=== PATIENT | female | born 1950 | race African-American/Black ===

== ENCOUNTER 2016-11-06 16:42 | Inpatient (IN) | payer MEDICARE, OTHER ==
[~2016-11-06] VITALS: Ht 160 cm; Wt 65.3 kg
[2016-11-06] MEDS ORDERED: TOPROL XL25 MG (17:17)
[2016-11-06] MEDS ORDERED: XARELTO15 MG PO (17:19)
[2016-11-06] MEDS ORDERED: CELEXA10 MG PO (17:21)
[2016-11-06] MEDS ORDERED: XARELTO20 MG PO (17:21)
[2016-11-06] MEDS ORDERED: FEXOFENADINE H180 MG PO (17:21)
[2016-11-06] MEDS ORDERED: PRINIVIL20 MG (17:23)
[2016-11-06] MEDS ORDERED: MELATONIN 3 MG1 TAB (17:24)
[2016-11-06] MEDS ORDERED: PROTONIX40 MG PO (17:24)
[2016-11-06] MEDS ORDERED: NITROSTAT0.6 MG SL (17:24)
[2016-11-06] MEDS ORDERED: ZOCOR20 MG PO (17:25)
--- NOTE | 2016-11-06 18:00 | NUR ---
RECIEVED BY PRIVATE CAR TO ROOM 1109.ORIENTED TO SURROUNDINGS;ACCOMPANIED BY FAMILY.
[2016-11-06 18:21] VITALS: BP 120/62; BMI 25.6
--- NOTE | 2016-11-06 18:55 | NUR ---
RESTING QUIETLY IN BED, EYES CLOSED. BED ALARM ARMED. SR UP X3. WATER AND CALL LIGHT IN REACH.
[2016-11-06 20:09] VITALS: BP 120/62
--- NOTE | 2016-11-06 20:25 | NUR ---
CAUGHT PATIENT WITH LEGS OVER BEDSIDE, ATTEMPTING OOB. ASSISTED HER TO BR TO URINATE. INITIALLY SAID SHE WAS LOOKING FOR HER DAUGHTER WHO HAD DEPARTED EARLIER SAYING HE WILL BE STAYING THE NIGHT WITH MRS. ANDREA. ATTEMPTED TO REORIENT PATIENT TO TIME, SITUATION AND PLACE BUT PATIENT DID NOT RETAIN INFO.
[2016-11-06] MEDS ORDERED: HYDROCODON-ACE1 EAC7 PO (21:28)
--- NOTE | 2016-11-06 21:55 | NUR ---
GAVE PATIENT NORCO 5/325 X1 TAB PO FOR ABDOMINAL INCISION PAIN OF 8/10
--- NOTE | 2016-11-06 22:20 | NUR ---
RESTING QUIETLY IN BED, EYES CLOSED.
--- NOTE | 2016-11-07 00:15 | NUR ---
IN BED, EYES CLOSED. NO APPARENT DISTRESS.
--- NOTE | 2016-11-07 02:20 | NUR ---
REMAINS IN BED, EYES CLOSED. NO DISTRESS EVIDENT.
--- NOTE | 2016-11-07 04:20 | NUR ---
PATIENT IN BED, AWAKE. DENIES NEEDS TO TOILET AT THIS TIME. EXPRESSES CONCERN THAT SOMEONE MIGHT LOOK IN HER WINDOW. DEMONSTRATED THAT HER BLINDS ARE CLOSED AND THAT THE AREA OUTSIDE THE WINDOW IS AN ATRIUM THAT IS NO LONGER IN USE. SHOWED HER THAT THE LIGHT SHE IS SENSING THROUGHT THE SLATS IN THE BLINDS IS COMING FROM THE HALLWAY ABOUT 30 FEET DIAGONALLY ACROSS THE ATRIUM. THIS SEEMED TO SATISFY HER.
[2016-11-07 05:58] LABS: BASOPHILS 0.2 % (0-2); EOSINOPHILS 3.6 % (0-7); HEMATOCRIT 34.1 % (36.0-48.0); HEMOGLOBIN 10.6 g/dL (12-16); IMMATURE GRANULOCYTES 0.2 % (0-5); LYMPHOCYTES 23.5 % (15-50); MCH 26.5 pg (26.0-34.0); MCHC 31.1 g/dL (31.0-37.0); MCV 85.3 fL (80.0-100.0); MEAN PLATELET VOLUME 10.9 fL (7.4-10.4); MONOCYTES 6.6 % (2-11); NEUTROPHILS 65.9 % (40-80); PLATELET COUNT 250 10x3/uL (130-400); RDW 13.2 % (11.5-14.5); WBC 5.6 10x3/uL (4.8-10.8)
[2016-11-07 06:03] LABS: CALC OSMOLALITY 278 mosm/kg (275-300); CALCIUM 8.8 mg/dL (8.5-10.1); CARBON DIOXIDE 34.6 mmol/L (21.0-32.0); CHLORIDE - SERUM 103 mmol/L (98-107); CREATININE - SERUM 0.6 mg/dL (0.6-1.3); GLUCOSE 111 mg/dL (74-106); POTASSIUM - SERUM 3.6 mmol/L (3.5-5.1); SODIUM 140 mmol/L (136-145); UREA NITROGEN 9 mg/dL (7-18); eGFR NON AFRICAN AMERICAN > 90 mL/min (90-120)
--- NOTE | 2016-11-07 06:15 | NUR ---
ASSISTED PATIENT UP TO BR TO URINATE AFTER GIVING HER SCHEDULED PROTONIX 40MG PO.
--- NOTE | 2016-11-07 07:55 | NUR ---
SITTING UP IN BED EATING BREAKFAST.CL IN REACH
[2016-11-07 09:25] VITALS: BP 118/64
--- NOTE | 2016-11-07 09:44 | NUR ---
PT IS RECIEVING A OT SHOWER AT THIS TIME.
--- NOTE | 2016-11-07 12:01 | NUR ---
PT IS RESTING IN HER ROOM AFTER THERAPY. AWAITING LUNCH. NO COMPLAINT VOICED.
--- NOTE | 2016-11-07 12:18 | RHP ---
PATIENT: DARLENE ANDREA MEDICAL RECORD: [id number] ACCOUNT: [id number] LOCATION:[facility] D.1109 : 48 ADMISSION DATE: 11/06/16 REHABILITATION HISTORY AND PHYSICAL EXAMINATION POST ADMISSION PHYSICIAN EXAMINATION DATE OF ADMISSION TO REHAB: 11/06/2016 ADMITTING DIAGNOSES: Pulmonary embolus with cor pulmonale, small bowel obstruction, respiratory insufficiency, constipation. HISTORY OF PRESENT ILLNESS: The patient is a 66-year-old female who was admitted to [facility] on October 24 with severe abdominal pain. She was noted to have a small bowel obstruction. On October 29, she underwent exploratory laparotomy, release of small bowel obstruction, lysis of adhesions and reduction of internal hernia. Postop, she was unremarkable until November 01 when she became short of breath and hypoxic. We will ambulate in the hospital. CT revealed a pulmonary embolus with right heart strain. She was transferred to [facility] in [place] on a nonrebreather with SaO2 of 100%, was diagnosed with acute respiratory failure secondary to pulmonary embolus. She started on Xarelto and metoprolol. She is now on 2 L of O2 which she will require at home. She has had some low potassium level since the procedures. Last bowel movement was on Saturday, November 03. CT of abdomen showed no obstruction. She has positive bowel sounds and was passing gas. On November 04 was her last abdominal dressing change. The patient requires min assist for transfers to bedside commode, ambulating up to 20 feet with a rolling walker with minimal assist, but she does fatigue early easily. She has short-term memory loss and intermittent confusion. She lives at home alone prior to this hospitalization, was still driving. Her son, daughter and son-in-law are available to actually assist as needed and they requested inpatient rehab to get her back to her prior level of function and hopefully return home. COMORBIDITIES: In this patient include hypertension, COPD, respiratory failure, blood clots in lungs, constipation, chest pain, congenital anomaly of the coronary artery, coronary artery disease, acid reflux, arthritis, CHF, dyslipidemia, fibromyalgia, dementia and thyroid disease. PAST MEDICAL HISTORY: Significant for fibromyalgia, hypertension, COPD, constipation, coronary artery disease, gastroesophageal reflux disease, dyslipidemia and dementia. PAST SURGICAL HISTORY: Includes exploratory laparotomy. ALLERGIES: PENICILLIN. CURRENT MEDICATIONS: Include Xarelto 20 mg daily, Protonix 40 mg daily, lisinopril 20 mg daily, June 180 mg daily, citalopram 10 mg daily. She is on a Nitrostat p.r.n., melatonin 1.5 mg q.h.s., and polyethylene glycol 17 g in 8 ounces of water daily. HABITS: No alcohol or tobacco use. FAMILY HISTORY: Noncontributory. SOCIAL HISTORY: The patient hopes to return back home and get back to her prior HISTORY AND PHYSICAL [id number] [facility] level of functioning. REVIEW OF SYSTEMS: GENERAL: Does complain of weakness and fatigue especially with activity. HEENT: Denies cold, cough or congestion. CARDIOVASCULAR: Denies chest pain. LUNGS: Shortness of breath. PHYSICAL EXAMINATION: VITAL SIGNS: Stable, afebrile. GENERAL: A well-developed female, in no acute distress, alert upon exam. HEENT: Normocephalic, atraumatic. Mucosa moist. NECK: Supple with no lymphadenopathy. LUNGS: Clear at this time. HEART: Regular rate and rhythm. ABDOMEN: Soft, benign. Does have positive bowel sounds times 4. Has previous dressings in place. EXTREMITIES: No clubbing, cyanosis or edema. NEUROLOGIC: Intact. LABORATORY DATA: Her white count is 5.6, H&H of 11 and 34, and platelet count 250. Her sodium is 140, potassium 3.6, BUN and creatinine of 9 and 0.6, and blood sugar is noted to be 111. ASSESSMENT: This is a 66-year-old female patient who is admitted to rehab with a working diagnosis of pulmonary embolism with cor pulmonale, status post small bowel obstruction. She has also got some respiratory insufficiency and constipation. The patient has potential to make improvement. We instituted the following multidisciplinary therapies including, but not limited to physical, occupational, respiratory, speech, nutritional services, prosthetics and orthotics. Given her complex condition and risk for more complications, rehabilitation services cannot be provided at a lower level of care such as a [facility] facility. PLAN: 1. Admit to [facility] rehab for intensive inpatient therapy to include the following disciplines: A. Physical therapy to improve gait, all transfer skills and bed mobility to a modified independent level. B. Occupational therapy to improve activities of daily living to a modified independent level. C. Case management to assist with discharge planning and placement options. D. Nutrition to assist with nutritional needs. E. Rehabilitation nursing to assist in monitoring the patient's underlying medical conditions and to assist with any type of bowel or bladder management. 2. The patient's current medications and medical care will be continued. 3. The patient will be placed on standard fall precautions. 4. The patient's estimated length of stay is approximately 7-10 days. 5. We will discuss this patient during care team staff meeting this week and hopefully get her return back over to [place] since she is able to do her ADLs. TRANSINT:[id number] Voice Confirmation ID: [id number] DOCUMENT ID: [id number] MANUEL notes whether there has been none or any medical/functional HISTORY AND PHYSICAL [id number] DARLENE ANDREA change since admission: - MANUEL attests patient continues to be appropriate for IRF: - SALEEM RICHARDSON MD at 1218 CC: [id number] DICTATION DATE: 11/07/16 0834 MACHINE CAGE MAKER: 11/07/16 0947 ADM IN [place] [id number] [place] [id number]
[2016-11-07 13:36] VITALS: Ht 160 cm; Wt 65.3 kg
--- NOTE | 2016-11-07 14:00 | NUR ---
PT VOICED COMPLAINT OF CHEST PAIN RADIATING FROM HER CHEST TO HER BACK. VSS. PULSE OX 98% ON ROOM AIR. EKG AND CARDIAC ENZYMES ORDERED.
[2016-11-07 15:14] LABS: CKMB 1.7 U/L (0.0-3.6); CREATINE KINASE 108 UL (21-215); TROPONIN-I 0.049 ng/mL (0.000-0.060)
--- NOTE | 2016-11-07 16:52 | NUR ---
CARE TEAM MEETING: PATIENT NEW TO UNIT AND WILL BE RA AT NEXT MEETING. WILL CONTINUE TO FOLLOW WITH PATIENT. PLANS ARE FOR PATIENT TO RETURN HOME
--- NOTE | 2016-11-07 17:48 | NUR ---
PT FEEDING SELF SUPPER IN HER ROOM. SEVERAL FAMILY MEMBERS AT BEDSIDE.
[2016-11-07 18:58] VITALS: BP 123/71
--- NOTE | 2016-11-07 19:10 | NUR ---
PATIENT IN BED, AWAKE. DAUGHTER PRESENT AT THIS TIME.
[2016-11-07 21:00] LABS: CKMB 1.2 U/L (0.0-3.6); CREATINE KINASE 94 UL (21-215); TROPONIN-I 0.048 ng/mL (0.000-0.060)
--- NOTE | 2016-11-07 21:35 | NUR ---
RESTING QUIETLY, EYES CLOSED.
--- NOTE | 2016-11-07 22:30 | NUR ---
ASSESSMENT AND HS MEDS COMPLETE. ASSISTED PATIENT UP TO BR TO URINATE. INSTRUCTED HER TO CALL FOR ASSIST BACK TO BED. WENT TO [facility] TO OBTAIN MEDS FOR A NEW PATIENT--REQUIRED CO-SIGNATURE OF RESEARCH CLERK. COMPLETED THIS IN ABOUT 3 MINUTES AND WHEN I RETURNED TO PATIENT'S DOORWAY FOUND THAT SHE HAD NOT CALLED FOR ASSIST, BUT RATHER HAD AMBULATED BACK TO BED AND WAS SITTING ON BEDSIDE. REMINDED PATIENT OF THE NEED TO CALL FOR ASSIST TO INSURE HER SAFETY, BUT WITH HER LEVEL OF FORGETFULNESS R/T DEMENTIA, IT IS PROBABLY A FRUITLESS EXERCISE.
--- NOTE | 2016-11-08 00:10 | NUR ---
RESTING QUIETLY IN BED, EYES CLOSED.
--- NOTE | 2016-11-08 01:55 | NUR ---
IN BED, EYES CLOSED. RESPIRATIONS UNLABORED.
[2016-11-08 02:47] LABS: CKMB 1.2 U/L (0.0-3.6); CREATINE KINASE 81 UL (21-215); TROPONIN-I 0.048 ng/mL (0.000-0.060)
--- NOTE | 2016-11-08 04:00 | NUR ---
RESTING QUIETLY IN BED, EYES CLOSED. WAS UP WITH ASSIST TO BR AROUND 0250.
--- NOTE | 2016-11-08 05:35 | NUR ---
GAVE PATIENT SCHEDULED PROTONIX AND ALSO MIRALAX 17GM IN 8 OZS WATER SHE HAS HAD NO BM SINCE 11/03.
--- NOTE | 2016-11-08 06:45 | NUR ---
RESTING QUIETLY IN BED CALL LIGHT IN REACH
--- NOTE | 2016-11-08 09:12 | NUR ---
PT IS UP AT THE NURSES STATION SITTING IN HER WC AWAITING THERAPY. NO COMPLAINTS VOICED. NO ACUTE DISTRESS NOTED.DRESSING TO ABD IS CDI. NO DRAINAGE NOTED. PT IS FRIENDLY AND COOPERATIVE. SHE IS VERY FORGETFUL.
[2016-11-08 10:48] VITALS: BP 115/63
--- NOTE | 2016-11-08 11:00 | NUR ---
PT IS PARTICIPATING IN THERAPY AT THIS TIME.
--- NOTE | 2016-11-08 13:13 | NUR ---
PT IS RESTING IN HER ROOM AWAITING THERAPY TIME. NO ACUTE DISTRESS NOTED.
--- NOTE | 2016-11-08 17:50 | NUR ---
PT IS RESTING IN HER ROOM VISITING WITH HER DAUGHTER. NO DISTRESS NOTED.
--- NOTE | 2016-11-08 19:00 | NUR ---
IN BED, AWAKE. DAUGHTER SITTING IN ROOM WITH PATIENT. BED ALARM IS ARMED. SR UP X3.
[2016-11-08 19:10] VITALS: BP 110/61
--- NOTE | 2016-11-08 21:15 | NUR ---
ASSESSMENT AND HS MEDS COMPLETE. DENIES NEEDS. DAUGHTER ALREADY DEPARTED FOR HOME. BED ALARM IS ARMED AND SR UP X3 WITH WATER AND CALL LIGHT IN REACH. REMINDED PATIENT TO REMAIN IN BED AND CALL FOR ASSIST UP TO BR WHEN SHE NEEDS TO GO. OFFERED TO ASSIST HER TO BR NOW, BUT PATIENT SAYS SHE DOES NOT NEED TO GO AT THIS TIME.
--- NOTE | 2016-11-08 21:45 | NUR ---
RESTING IN BED, EYES CLOSED.
--- NOTE | 2016-11-09 00:10 | NUR ---
RESTING QUIETLY, EYES CLOSED.
--- NOTE | 2016-11-09 02:20 | NUR ---
SET OFF BED ALARM ATTEMPTING OOB THROUGH BEDRAILS. WAS ASSISTED UP TO BR AND BACK TO BED BY KOBE ROSE.
--- NOTE | 2016-11-09 04:20 | NUR ---
RESTING IN BED, EYES CLOSED.
[2016-11-09 06:05] LABS: BASOPHILS 0.4 % (0-2); EOSINOPHILS 2.8 % (0-7); HEMATOCRIT 34.6 % (36.0-48.0); HEMOGLOBIN 11.1 g/dL (12-16); IMMATURE GRANULOCYTES 0.2 % (0-5); LYMPHOCYTES 27.4 % (15-50); MCH 27.1 pg (26.0-34.0); MCHC 32.1 g/dL (31.0-37.0); MCV 84.6 fL (80.0-100.0); MEAN PLATELET VOLUME 11.1 fL (7.4-10.4); MONOCYTES 8.7 % (2-11); NEUTROPHILS 60.5 % (40-80); RBC 4.09 10x6/uL (4.00-5.40); RDW 13.6 % (11.5-14.5)
--- NOTE | 2016-11-09 06:05 | NUR ---
ASSISTED PATIENT UP TO BR AND SET HER UP TO DRESS. REQUIRES CUEING FOR SEQUENCING AND TO KEEP HER ON TASK WHEN DRESSING. RETURNED HER TO BED. BED ALARM RESUMED. SR UP X3 WITH WATER AND CALL LIGHT IN REACH.
[2016-11-09 06:06] LABS: PLATELET COUNT 305 10x3/uL (130-400)
[2016-11-09 06:16] LABS: CALC OSMOLALITY 276 mosm/kg (275-300); CALCIUM 8.8 mg/dL (8.5-10.1); CARBON DIOXIDE 32.4 mmol/L (21.0-32.0); CHLORIDE - SERUM 104 mmol/L (98-107); CREATININE - SERUM 0.7 mg/dL (0.6-1.3); GLUCOSE 105 mg/dL (74-106); POTASSIUM - SERUM 4.1 mmol/L (3.5-5.1); SODIUM 140 mmol/L (136-145); eGFR NON AFRICAN AMERICAN 88 mL/min (90-120)
[2016-11-09 06:17] LABS: UREA NITROGEN 6 mg/dL (7-18)
--- NOTE | 2016-11-09 07:30 | NUR ---
PT IS RESTING QUIETLY IN BED WITH EYES CLOSED. NO DISTRESS NOTED. NO SOB NOTED. SR'S ARE UP X 3 IN BED. CALL LIGHT AND BEDSIDE TABLE ARE WITHIN EASY REACH.
[2016-11-09 07:55] VITALS: BP 105/62
--- NOTE | 2016-11-09 10:02 | NUR ---
PT IS PARTICIPATING IN THERAPY AT THIS TIME.
--- NOTE | 2016-11-09 15:40 | NUR ---
PT IS RESTING IN HER ROOM. NO ACUTE DISTRESS NOTED.
--- NOTE | 2016-11-09 17:23 | NUR ---
PT IS SITTING IN A CHAIR IN HER ROOM EATING SUPPER. NO SWALLOWING PROBLEMS NOTED. FAMILY MEMBER IS VISITING. PT IS VERY CONFUSED AT THIS TIME. FAMILY MEMBER STATED SHE WAS BECOMING AGGRESSIVE WITH HIM AT TIMES.
[2016-11-09 19:09] VITALS: BP 115/66
--- NOTE | 2016-11-09 20:16 | NUR ---
PT REQUESTS HELP TO PACK ITEMS, STATES SHE WANTS TO GO HOME, SHE STATES SHE NEEDS TO CALL HER DAUGHTER, PT WANDERING AROUND ROOM. THEN APATHETICALLY SHE STATES SHE DOENS'T KNOW WHAT IS WRONG WITH HER. HAVE ENCOURAGED PATIENT TO SIT AT DESK FOR SUPERVISION.
--- NOTE | 2016-11-10 03:15 | NUR ---
ALARM SOUNDED, PT WALKING AROUND IN ROOM, STATES THE SOUNDS SCARES HER. ASSISTED PT TO FINDING THE BATHROOM. PT VOIDED. PT PLEASANT AND CONVERSIVE.
--- NOTE | 2016-11-10 08:00 | NUR ---
PT RESTING IN BED WITH EYES OPEN CALL LIGHT IN REACH NO PROBLEMS WILL MONITER
[2016-11-10 09:28] VITALS: BP 142/72
--- NOTE | 2016-11-10 11:31 | NUR ---
SITTING O SIDE OF BED.CL IN REACH.
--- NOTE | 2016-11-10 15:02 | NUR ---
PT RESTING IN BED WITH EYES OPEN CALL LIGHT IN REACH WILL MONITER
--- NOTE | 2016-11-10 15:02 | NUR ---
PT RESTING IN BED WITH EYES OPEN CALL LIGHT IN REACH NO PROBLEMS WILL MONITER
--- NOTE | 2016-11-10 18:03 | NUR ---
PT RESTING IN BED WITH EYES OPEN CALL LIGHT IN REACH NO PROBLEMS WILL MONITER
[2016-11-10 19:28] VITALS: BP 121/70
--- NOTE | 2016-11-11 01:45 | NUR ---
bed alarm sounded, pt sitting on side of bed, confused re sound. sba assist to bathroom, pt needs verbal cues to where bathroom is located in room.
--- NOTE | 2016-11-11 07:30 | NUR ---
pt used call light and waited for assistance to go to bathroom. denies any other needs.
--- NOTE | 2016-11-11 08:15 | NUR ---
PT RESTING IN BED WITH EYES OPEN CALL LIGHT IN REACH NO PROBLEMS WILL MONITER
[2016-11-11 08:18] VITALS: BP 113/65
--- NOTE | 2016-11-11 15:19 | NUR ---
SITTING UP IN CHAIR.CL IN REACH.
--- NOTE | 2016-11-11 15:49 | NUR ---
PT RESTING IN BED WITH EYES OPEN CALL LIGHT IN REACH NO PROBLEMS WILL MONITER
--- NOTE | 2016-11-11 15:51 | NUR ---
PT RESTING IN BED WITH EYES OPEN CALL [facility] IN REACH NO PROBLEMS WILL MONITER
--- NOTE | 2016-11-11 19:40 | NUR ---
PT. IN BED WITH HOB UP FOR COMFORT WITH EYES CLOSED AND RESP. EVEN. PT. AWAKENS EASILY FOR ASSESSMENT AND DENIES ANY NEEDS AT THIS TIME. CALL LIGHT WITHIN REACH.
[2016-11-11 20:30] VITALS: BP 124/57
--- NOTE | 2016-11-11 23:15 | NUR ---
ALL NATE REMOVED FROM MIDLINE ABD. INCISION WITHOUT ANY PROBLEMS AND THEN A BORDER GAUZE DRESSING WAS APPLIED. PT. TOLERATED PROCEDURE WITHOUT C/O.
--- NOTE | 2016-11-11 23:22 | NUR ---
PT IN BED WITH HOB UP FOR COMFORT WITH EYES CLOSED AND RESP. DEEP AND EVEN. CALL LIGHT WITHIN REACH.
--- NOTE | 2016-11-12 03:11 | NUR ---
PT. IN BED LYING ON HER RIGHT SIDE WITH EYES CLOSED AND RESP. DEEP AND EVEN. CALL LIGHT REMAINS WITHIN REACH.
[2016-11-12 07:03] LABS: BASOPHILS 0.4 % (0-2); EOSINOPHILS 2.2 % (0-7); HEMATOCRIT 38.1 % (36.0-48.0); HEMOGLOBIN 11.8 g/dL (12-16); IMMATURE GRANULOCYTES 0.2 % (0-5); LYMPHOCYTES 33.4 % (15-50); MCH 26.6 pg (26.0-34.0); MCV 85.8 fL (80.0-100.0); MEAN PLATELET VOLUME 10.9 fL (7.4-10.4); MONOCYTES 6.9 % (2-11); NEUTROPHILS 56.9 % (40-80); PLATELET COUNT 366 10x3/uL (130-400); RBC 4.44 10x6/uL (4.00-5.40); RDW 13.7 % (11.5-14.5); WBC 4.9 10x3/uL (4.8-10.8)
[2016-11-12 07:14] LABS: CALC OSMOLALITY 274 mosm/kg (275-300); CALCIUM 9.1 mg/dL (8.5-10.1); CARBON DIOXIDE 31.8 mmol/L (21.0-32.0); CHLORIDE - SERUM 102 mmol/L (98-107); CREATININE - SERUM 0.8 mg/dL (0.6-1.3); GLUCOSE 107 mg/dL (74-106); POTASSIUM - SERUM 4.8 mmol/L (3.5-5.1); SODIUM 138 mmol/L (136-145); UREA NITROGEN 11 mg/dL (7-18); eGFR NON AFRICAN AMERICAN 75 mL/min (90-120)
--- NOTE | 2016-11-12 07:48 | NUR ---
PT UP EATING BREAKFAST, DENIES NEEDS.
[2016-11-12 07:49] VITALS: BP 132/69
--- NOTE | 2016-11-12 12:50 | NUR ---
PT SET OFF CHAIR ALARM GETTING UP TO FIND A TRASH CAN. PT WAS IN HALLWAY BY THE TIME I GOT TO HER. PT RETURNED TO ROOM AND ATTEMPTED TO REORIENT. PT NOW WATCHING TV. ANA LAURA.
--- NOTE | 2016-11-12 16:15 | NUR ---
PT CONTINUES TO TRY TO GET OUT OF BED AND STATES SHE IS LEAVING. AFTER TALKING WITH THE PT SHE IS LYING BACK IN BED WATCHING TV AND OK WITH WAITING FOR HER DAUGHTER TO ARRIVE. ANA LAURA.
--- NOTE | 2016-11-12 19:00 | NUR ---
IN BED, QUIET, AWAKE. DENIES NEEDS.
--- NOTE | 2016-11-12 20:05 | NUR ---
ATTEMPTING OOB ON FAR SIDE OF BED BETWEEN BEDRAILS. DENIES NEEDS TO TOILET. SAYS SHE NEEDS TO GO HOME TO TAKE CARE OF HER . ATTEMPTED TO RE-ORIENT HER, BUT SHE IS NOT CONVINCED. ASSISTED HER BACK INTO BED. BED ALARM IS ARMED. SR UP X3.
--- NOTE | 2016-11-12 21:05 | NUR ---
BED ALARM AGAIN SOUNDING. PATIENT ATTEMPTING OOB. SAYS SHE IS LOOKING FOR HER CAR KEYS. SAYS, "MY IS SICK AND I NEED TO WEAVER HAND SOME MEDICINE FOR HIM. REMINDED HER SHE HAD BEEN IN THE HOSPITAL IN THIS UNIT FOR SEVERAL DAYS AND NIGHTS. PATIENT INSISTS SHE HAS BEEN GOING HOME DAILY. CALLED HER FAMILY TO ASK THAT SOMEONE SIT WITH HER FOR AWHILE TO HELP KEEP HER CALM AND POSSIBLY REORIENTED TO HER SITUATION. SON-IN-LAW SAYS SOMEONE WILL BE UP [place].
[2016-11-12 22:25] VITALS: BP 128/68
--- NOTE | 2016-11-12 22:25 | NUR ---
DAUGHTER HAS BEE HERE ABOUT AN HOUR. ASSESSMENT AND HS MEDS ARE COMPLETE. GAVE PATIENT NORCO 5/325 X1 TAB PO FOR PAIN LEVEL OF 3/10 IN ABDOMEN R/T HER PHYSICAL EXERTIONS OF THE EVENING. PATIENT WAS JUST UP TO BR WITH DAUGHTER'S ASSIST. URINATED AND HAD A BM WELL. DAUGHTER ASSISTING PATIENT TO CHANGE INTO GOWN FIR THE NIGHT.
--- NOTE | 2016-11-12 23:45 | NUR ---
AWAKE BUT DROWSY. DENIES NEEDS.
--- NOTE | 2016-11-13 01:50 | NUR ---
RESTING QUIETLY, EYES CLOSED. HOB UP 20 DEGREES. NO APPARENT DISTRESS.
--- NOTE | 2016-11-13 04:40 | NUR ---
RESTING IN BED, EYES CLOSED.
--- NOTE | 2016-11-13 05:54 | NUR ---
PATIENT AWAKE. ASSISTED HER UP TO BR TO URINATE AND TO CHANGE CLOTHING. REQUIRES FREQUENT CUEING TO KEEP HER ON TASK WELL FOR SEQUENCING AND SAFETY.
--- NOTE | 2016-11-13 08:09 | NUR ---
PT EATING BREAKFAST, DENIES NEEDS. CL IN REACH.
--- NOTE | 2016-11-13 14:49 | NUR ---
NUTRITION MONITORING & EVAL CHART REVIEWED, PT VISIT. TOLERATING REG MECH SOFT DIET. GOOD PO INTAKE AT THIS TIME. 100% RECENT MEALS. RD FOLLOWING
--- NOTE | 2016-11-13 18:03 | NUR ---
PT FAMILY IN ROOM ASSSISTING WITH NEEDS. WCTM. BED LOW. CL IN REACH.
[2016-11-13 18:54] VITALS: BP 123/64
--- NOTE | 2016-11-13 19:30 | NUR ---
IN BED, AWAKE. DENIES NEEDS. DAUGHTER JUST LEFT FOR HOME.
--- NOTE | 2016-11-13 20:15 | NUR ---
IN BED, AWAKE. DENIES NEEDS.
--- NOTE | 2016-11-13 22:00 | NUR ---
ASSESSMENT AND HS MEDS COMPLETE. GAVE PATIENT NEWLY-ORDERED RESTORIL 7.5MG PO FOR SLEEP. ASSISTED PATIENT TO AMBULATE SBA WITH R/W TO BR COMMODE.
--- NOTE | 2016-11-14 | NUR ---
RESTING QUIETLY IN BED ON LEFT SIDE. NO DISTRESS NOTED.
--- NOTE | 2016-11-14 02:10 | NUR ---
RESTING IN BED, EYES CLOSED. APPEARS COMFORTABLE.
--- NOTE | 2016-11-14 05:55 | NUR ---
PATIENT IN BED AFTER ASSIST UP TO BR TO URINATE AND TO CHANGE CLOTHES FOR THE DAY.
--- NOTE | 2016-11-14 08:00 | NUR ---
PT IS SITTING ON THE SIDE OF HER BED, FEEDING SELF BREAKFAST. ALERT TO SELF. CONFUSED TO TIME AND PLACE. PT IS VERY FRIENDLY AND COOPERATIVE. NO SOB NOTED. NO COMPLAINT OF PAIN OR DISCOMFORT VOICED. SR'S ARE UP X 2 IN BED. CALL LIGHT AND BEDSIDE TABLE ARE WITHIN EASY REACH.
--- NOTE | 2016-11-14 10:00 | NUR ---
SITTING ON SIDE OF BED.CL IN REACH.ALARM ON.
--- NOTE | 2016-11-14 10:32 | NUR ---
PT IS PARTICIPATING IN THERAPY AT THIS TIME.
--- NOTE | 2016-11-14 10:35 | NUR ---
TENATIVE DISCHARGE DATE IS 11/16/16. PLANS ARE FOR PATIENT TO RETURN HOME WITH FAMILY. WILL CONTINUE TO FOLLOW WITH PATIENT AND WILL ASSIST FAMILY WITH DISCHARGE NEEDS.
--- NOTE | 2016-11-14 13:36 | NUR ---
PT IS PARTICIPATING IN THERAPY AT THIS TIME.
--- NOTE | 2016-11-14 19:10 | NUR ---
PATIENT UP IN HALLWAY. REDIRECTED HER TO HER ROOM.
[2016-11-14 20:55] VITALS: BP 122/60
--- NOTE | 2016-11-14 20:55 | NUR ---
HAVE HAD TO REDIRECT PATIENT TO HER ROOM SEVERAL TIMES SHE CONTINUES TO LEAVE HER BED AND THE ROOM. TONIGHT SHE IS PERSEVERATING THAT SHE NEEDS TO GET HOME SHE HAS SMALL CHILDREN TO CARE FOR. DAUGHTER MARQUEZ CALLED EARLIER AND I TRANSFERRED THE CALL TO HER SO SHE COULD ATTEMPT TO RE-ORIENT PATIENT. MRS. ANDREA HAS NO MEMORY OF THAT CALL 30 MINUTES AGO, BUT SHE IS MORE AMENABLE TO STAY IN HER BED NOW. ASSESSMENT AND HS MEDS CARE COMPLETE. GAVE PATIENT 7.5MG TEMAZEPAM PO FOR SLEEP.
--- NOTE | 2016-11-14 21:30 | NUR ---
DAUGHTER MARQUEZ ARRIVED ON UNIT AND FOUND PATIENT TO BE ASLEEP SAYS SHE DOES NOT WANT TO AWAKEN HER. LEFT FRESH CLOTHING FOR PATIENT.
--- NOTE | 2016-11-14 22:15 | NUR ---
RESTING IN BED ON RIGHT SIDE, HOB UP 15 DEGREES.
--- NOTE | 2016-11-15 00:10 | NUR ---
RESTING IN BED ON RIGHT SIDE, EYES CLOSED. APPEARS COMFORTABLE.
--- NOTE | 2016-11-15 02:25 | NUR ---
RESTING QUIETLY IN BED, EYES CLOSED. WAS ASSISTED UP TO BR COMMODE AND BACK TO BED AT 0055.
--- NOTE | 2016-11-15 04:45 | NUR ---
REMAINS IN BED, LYING ON RIGHT SIDE, RESTING QUIETLY.
--- NOTE | 2016-11-15 05:50 | NUR ---
ASSISTED PATIENT UP TO BR TO URINATE AND TO CHANGE CLOTHING. THEN ASSISTED HER BACK TO BED AND GAVE HER SCHEDULED PO MEDS. DENIES NEEDS.
--- NOTE | 2016-11-15 08:15 | NUR ---
PT UP ON SIDE OF EATING BREAKFAST CALL LIGHT IN REACH NO PROBLEMS WILL MONITER
--- NOTE | 2016-11-15 11:30 | NUR ---
SITTING UP IN CHAIR.CL IN REACH.
[2016-11-15 11:58] VITALS: BP 126/68
--- NOTE | 2016-11-15 15:00 | NUR ---
PT RESTING IN BED WITH EYES OPEN CALL LIGHT IN REACH WILL MONITER
[2016-11-15 19:40] VITALS: BP 112/56
--- NOTE | 2016-11-15 19:40 | NUR ---
ASSESSMENT AND VS COMPLETE. TOLD PATIENT I WILL RETURN LATER WITH BEDTIME MEDS.
--- NOTE | 2016-11-15 21:25 | NUR ---
RESTING QUIETLY IN BED, EYES CLOSED.
--- NOTE | 2016-11-15 22:10 | NUR ---
GAVE PATIENT HS MEDS INCLUDING TEMAZEPAM 7.5MG PO FOR SLEEP. SR UP X3 WITH BED ALARM ARMED. WATER AND BARBARA LIGHT ARE IN REACH.
--- NOTE | 2016-11-15 22:50 | NUR ---
GAVE HS MEDS TO PATIENT. ALSO GAVE HER GUAIFENESIN WITH CODEINE SYRUP, 5ML PO FOR ONGOING COUGH. ASSISTED HER UP TO COMMODE, AND THEN INTO SHOWER. CHANGED ALL PATIENT BED LINENS AND ASSISTED HER TO GOWN AND TO RETURN TO BED.
--- NOTE | 2016-11-16 00:10 | NUR ---
RESTING IN BED, EYES CLOSED.
--- NOTE | 2016-11-16 01:50 | NUR ---
RESTING IN BED ON LEFT SIDE, EYES CLOSED. NO DISTRESS NOTED.
--- NOTE | 2016-11-16 04:00 | NUR ---
RESTING IN BED, EYES CLOSED. RESPIRATIONS UNLABORED.
--- NOTE | 2016-11-16 05:50 | NUR ---
ASSISTGED PATIENT UP TO BR COMMODE TO URINATE AND BACK TO BED. SYAS SHE'LL WEAR HER CURRENT CLOTHING TODAY.
--- NOTE | 2016-11-16 08:22 | NUR ---
PT AM MEDS ADMINISTERED. PT ASSISTED TO BR. PT BACK IN BED AND DENIES FURTHER NEEDS.
[2016-11-16 08:35] VITALS: BP 103/57
--- NOTE | 2016-11-16 11:30 | NUR ---
PT SITTING UP ON SIDE OF BED WAITING FOR LUNCH AND WATCHING TV. PT DENIES NEEDS. WCTM.
--- NOTE | 2016-11-16 14:16 | NUR ---
PT UP IN BEDSIDE CHAIR WATCHING TV. DENIES NEEDS. WCTM.
--- NOTE | 2016-11-16 15:45 | NUR ---
PT DISCHARGED HOME WITH FAMILY.
--- NOTE | 2016-11-16 16:02 | NUR ---
PATIENT HAS DISCHARGED HOME WITH FAMILY, [facility] WILL FOLLOW WITH PATIENT. NO DME NEEDED AT THIS TIME. DR. MERVAT LEDESMA 11/26/16 @ 1:30. PATIENT CHOICE FORM FOR HOME HEALTH AND [facility] FORM SIGNED, EXPLAINED AND FILED IN CHART.PATIENT WILL HAVE [facility] THERAPY AT HOME FOR COGNITION. ORDERS HAVE BEEN FAXED WITH [employer] RECIEVED
== END 2016-11-16 15:46 | disposition home health service (06) | DRG 175 ==
LOC: D.REHAB 16:42
PROVIDERS: ADMIT Emergency Medicine
DX: I26.09 Other pulmonary embolism with acute cor pulmonale (principal); J96.01 Acute respiratory failure with hypoxia; Q24.5 Malformation of coronary vessels; J44.9 Chronic obstructive pulmonary disease, unspecified; K59.00 Constipation, unspecified; R07.9 Chest pain, unspecified; K21.9 Gastro-esophageal reflux disease without esophagitis; I11.0 Hypertensive heart disease with heart failure; I50.9 Heart failure, unspecified; E78.5 Hyperlipidemia, unspecified; F03.90 Unspecified dementia, unspecified severity, without behavioral disturbance, psychotic disturbance, mood disturbance, and anxiety; M79.7 Fibromyalgia